=== PATIENT | male | born 1985 | race Caucasian/White ===

== ENCOUNTER 2023-06-17 15:00 | Emergency (ER) | payer OTHER, SELFPAY ==
[2023-06-17 15:09] VITALS: BP 158/103; PULSE 105; RESP 20; TEMP 36.9; O2SAT 97
--- NOTE | 2023-06-17 15:09 | ED.EAR ---
HPI - Ear Problem General Chief complaint: Ear Stated complaint: Ear Pain/Dizziness/Skin Sore Source: patient and RN notes reviewed History of Present Illness HPI Narrative: 38 yo M presents to urgent care with complaints of right ear fullness, popping and intermittent change in hearing x 2 weeks. Pt also reports congestion and sinus pressure x 2 weeks. Pt is also reporting a couple bumps to his left buttocks x 2 days. Pt denies any fevers, chills, chest pain, SOB, N/V/D, sore throat, ear pain, or abdominal pain. Related Data Home Medications Medication Instructions Recorded Confirmed bupropion HCl 300 mg 24 hr tablet, mg PO 06/17/23 extended release Allergies Allergy/AdvReac Type Severity Reaction Status Date / Time No Known Allergies Allergy Verified 06/17/23 15:11 Review of Systems Review of Systems: Pertinent positives and pertinent negatives per HPI. PMFSH Comments At the time of my signature, I reviewed and agree with the nursing past medical, surgical, social, and family history. There is no relevant family history pertinent to the patient complaint. Exam Narrative: GENERAL: This is a well-nourished, well-developed patient, in no apparent distress. HEAD: normocephalic, atraumatic. EYES: Sclera clear/white. Vision is grossly intact. EARS: External ears normal, auditory canals clear and without drainage, Left TM normal without perforation. Hearing grossly intact. Right TM bulging with clear fluid. NOSE: External nose normal with no obvious nasal discharge, nares without redness, no rhinorrhea. + congestion THROAT: Mucous membranes moist, posterior pharynx clear. NECK: Neck supple, non-tender without lymphadenopathy, masses or thyromegaly. CARDIOVASCULAR: Regular rate and rhythm without murmurs, gallops, or rubs. RESPIRATORY: Clear to auscultation. Breath sounds equal bilaterally. No wheezes, rales, or rhonchi. GASTROINTESTINAL: Abdomen soft, non-tender, nondistended. Bowel sounds are active. No hepato-splenomegaly, or palpable masses. No guarding. SKIN: 2 cm open abrasion to right medial buttock, no drainage or surrounding erythema, induration, or fluctuance. Area of erythema beneath the abrasion, approximately 3 cm x 3cm, no induration, drainage, or fluctuance noted. NEURO: awake, alert, and oriented to person, place and time. There were no obvious focal neurologic abnormalities. EXTREMITIES: No clubbing, cyanosis, or edema. No joint tenderness, effusion, or edema noted. BACK: Nontender without deformity or crepitus. No flank tenderness. Course Course Level of Care: Express Care Visit Vital Signs Vital signs: Vital Signs Temperature 98.4 F 06/17/23 15:09 Pulse Rate 105 H 06/17/23 15:09 Respiratory Rate 20 06/17/23 15:09 Blood Pressure 158/103 H 06/17/23 15:09 Pulse Oximetry 97 06/17/23 15:09 Oxygen Delivery Room Air 06/17/23 15:09 Temperature 98.4 F 06/17/23 15:09 Pulse Rate 105 H 06/17/23 15:09 Respiratory Rate 20 06/17/23 15:09 Blood Pressure 158/103 H 06/17/23 15:09 Pulse Oximetry 97 06/17/23 15:09 Oxygen Delivery Room Air 06/17/23 15:09 Review Medical Decision Making MDM Narrative Medical decision making narrative: Go to the ER for any new or worsening symptoms. Avoid smoking/second-hand smoke. Continue to take Tylenol or Motrin for pain. Increase your Vitamin C intake. Use a humidifier or vaporizer at night. Take a probiotic daily while taking the antibiotic Take Medications as prescribed. Drink plenty of water. 8-10 glasses per day. Use flonase 2 times per day for 5 days then as needed Take mucinex 2 times per day and be sure to take with 8oz of water. Follow up with Primary provider if not getting better. Apply the antibiotic ointment as directed to the sores on your buttocks x 1 week. Differential Diagnosis Differential Diagnosis: Vertigo, acute otitis media, URI, otitis externa, cerumen impaction, contact dermatiti
== END 2023-06-17 15:26 | disposition home or self-care (01) ==
PROVIDERS: Emergency Provider Nurse Practitioner Family
DX: J32.9 Chronic sinusitis, unspecified (principal); H66.91 Otitis media, unspecified, right ear; R42 Dizziness and giddiness; Z79.899 Other long term (current) drug therapy
CPT/HCPCS: 99213; G0463

== ENCOUNTER 2024-02-05 11:26 | Emergency (ER) | payer OTHER, SELFPAY ==
[2024-02-05 11:41] VITALS: BP 183/106; PULSE 103; RESP 16; TEMP 36.9; O2SAT 99
--- NOTE | 2024-02-05 11:52 | ED.EYEPROB ---
HPI - Eye Problem General Chief complaint: Eye Problems Stated complaint: Right eye Time Seen by Provider: 02/05/24 11:52 Source: patient Mode of arrival: ambulatory Limitations: no limitations History of Present Illness HPI Narrative: 38 y/o male presented for c/o right eye 'irritation' for about 2-3 days. Denies injury or known foreign body. Eyes are watering. Denies pain or itching, purulent discharge, for foreign body sensation. Used visine. chief complaint: eye pain Related Data Home Medications Medication Instructions Recorded Confirmed bupropion HCl 300 mg 24 hr tablet, 30 mg PO DAILY 06/17/23 02/05/24 extended release Allergies Allergy/AdvReac Type Severity Reaction Status Date / Time No Known Allergies Allergy Verified 06/17/23 15:11 Review of Systems Review of Systems: CONSTITUTIONAL: Denies body aches, fever, chills EYES: Endorses swelling, redness right eye; Denies visual changes FB sensation, photophobia ENT: Denies rhinorrhea, congestion, sore throat, or otalgia. CARDIOVASCULAR: Denies chest pain, palpitations RESPIRATORY: Denies cough or dyspnea. GASTROINTESTINAL: Denies abdominal pain, nausea, vomiting, or diarrhea. SKIN: Denies rash, itching, or wounds. MUSCULOSKELETAL: Denies back pain, joint pain, or myalgia. NEUROLOGIC: Denies headache, numbness, tingling, or weakness. All systems reviewed & are unremarkable except as noted in HPI and below PMFSH Comments At time of signature, I have reviewed and agree with nursing past medical, surgical, social and family history unless otherwise noted. Please see nursing chart for further information. There is no relevant family history pertinent to the presenting complaint Exam Narrative: GENERAL: Well-appearing HEAD: Normocephalic, atraumatic. EYES: mild right conjunctival injection, minimal upper eye lid swelling. PERRLA EOMI. Lid eversion shows no FB. No corneal abrasion on sharma lamp exam. ENT: Mucous membranes pink and moist. No rhinorrhea. TMs normal bilaterally. Throat normal. Uvula midline. CHEST: Clear to auscultation. HEART: Regular rate and rhythm. ABDOMEN: Soft, nontender, nondistended SKIN: Warm, dry, no rash. Normal skin turgor. Course Course Emergency Course: Patient is aware of diagnosis, understands and agrees to treatment plan. Anticipatory guidance given. Patient agrees to follow-up as directed and is aware of reasons to seek care at the emergency department. Portions of this record may have been created with voice recognition software Level of Care: Express Care Visit Vital Signs Vital signs: Vital Signs Temperature 98.5 F 02/05/24 11:41 Pulse Rate 103 H 02/05/24 11:41 Respiratory Rate 16 02/05/24 11:41 Blood Pressure 183/106 H 02/05/24 11:41 Pulse Oximetry 99 02/05/24 11:41 Oxygen Delivery Room Air 02/05/24 11:41 Temperature 98.5 F 02/05/24 11:41 Pulse Rate 103 H 02/05/24 11:41 Respiratory Rate 16 02/05/24 11:41 Blood Pressure 180/110 H 02/05/24 12:17 Pulse Oximetry 99 02/05/24 11:41 Oxygen Delivery Room Air 02/05/24 11:41 Procedures FB Removal Eye Foreign Body #1: Foreign Body Removal Date: 02/05/24 Location: eye (R) Topical anesthetic used: tetracaine Evidence of corneal penetration: No Procedure performed under: other (sharma lamp) Patient tolerated procedure: well and no complications Foreign Body Removal Narrative: right eye was anesthetized with 1 drop of tetracaine and anesthesia was achieved. Lid was everted and examined for foreign body. No foreign body, corneal abrasion, or ulceration identified with Sharma lamp. The eye was flushed with eye wash. Pt tolerated procedure well. MDM - Eye Problem MDM Narrative Medical decision making narrative: Discussed physical exam findings, no apparent abrasion or ulceration on sharma exam. Rx polytrim. Advised supportive measures and signs/symp
[2024-02-05 12:17] VITALS: BP 180/110
== END 2024-02-05 12:27 | disposition home or self-care (01) ==
PROVIDERS: Emergency Provider Nurse Practitioner Family
DX: H57.11 Ocular pain, right eye (principal)
CPT/HCPCS: 99213; A9270; G0463